=== PATIENT | male | born 1965 | race Caucasian/White ===

== ENCOUNTER 2017-06-01 09:07 | Emergency (ER) | payer BC ==
[~2017-06-01] VITALS: Ht 182.9 cm; Wt 87.6 kg
[~2017-06-01 09:07] MED LIST: CLC100 PO; OXYC-106 PO; PANT40TA PO; PYR200 PO; SACC250C PO; TAMS0.4C38 PO; TIMO0.2534 OPB
[2017-06-01 09:15] VITALS: TEMP 36.5; Ht 182.9 cm; Wt 87.6 kg
[2017-06-01] MEDS ORDERED: PRED10TA PO (09:39)
[2017-06-01] MEDS ORDERED: ZNF/4 PO (09:39)
[2017-06-01] MEDS ORDERED: ALPPOPS5 OPB (09:39)
[2017-06-01] MEDS ORDERED: DORZ1SOL5 OPB (09:39)
[2017-06-01] MEDS ORDERED: OXYC-57 PO (09:39)
[2017-06-01] MEDS ORDERED: PRT/40 PO (09:39)
[2017-06-01] MEDS ORDERED: KETOROLAC TROMETHAMINE 60 MG/2 ML VIAL IM STA (10:00)
--- NOTE | 2017-06-01 10:01 | EMERGENCY ROOM VISIT NOTE ---
History Report prepared by Elis: Pastora Medrano Under the Supervision of: Dr. Irma Clemons D.O. First contact with patient: 09:33 Chief Complaint: NECK PAIN Stated Complaint: NECK PAIN,FACIAL NUMBNESS History of Present Illness The patient is a 51 year old male who presents to the Emergency Room with complaints of worsening left sided neck pain beginning 2 weeks prior to arrival. The patient states that he saw his PCP last night and was prescribed Percocet, Prednisone and a muscle relaxer. He states that he has not taken any of the medications yet. The patient was on his way to get his outpatient X-Ray of his neck done and he began to experience left sided numbness. The patient describes the numbness as similar to a numbing injection at the dentist. He states that he is also experiencing pain in his ear down into his shoulder and left arm. The patient states that recently he has woken up with left arm pain and numbness to his left two fingers. He denies any right sided symptoms.The patient denies a history of neck pain. 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 Pt denies headache, change in vision, fevers, dizziness, chest pain, shortness of breath, back pain, nausea, vomiting, diarrhea, pain with urination, and melena. Source of History: patient Onset: 2 week [employer] IN[employer] Position: neck Note: The patient is experiencing left facial numbness, left shoulder pain, left ear pain, left arm pain. Review of Systems See HPI for pertinent positives & negatives. A total of 10 systems reviewed and were otherwise negative. Past Medical & Surgical Surgical Problems: (1) H/O lithotripsy (2) Hx of cholecystectomy Family History No pertinent family history Social History Smoking Status: Never Smoker Marital Status: Housing Status: lives with family Occupation Status: employed Current/Historical Medications Scheduled Brimonidine Tartrate (Alphagan P), 1 DROP OPB BID Dorzolamide Hcl-Timolol Maleat (Cosopt Pf), 1 DROP OPB BID Oxycodone/Acetaminophen 5MG/325MG (Percocet 5MG/325MG), 1-2 TAB PO Q4H Pantoprazole (Pantoprazole Sodium), 40 MG PO DAILY Prednisone (Prednisone), 10 MG PO DAILY Tizanidine (Tizanidine HCl), 4 MG PO UD Allergies Coded Allergies: No Known Allergies (Verified , 06/01/17) Physical Exam Vital Signs Date Time Temp Pulse Resp B/P (MAP) Pulse Ox O2 Delivery O2 Flow Rate FiO2 06/01/17 11:50 68 15 141/85 94 06/01/17 09:15 36.5 84 18 142/91 97 Physical Exam GENERAL: alert, well appearing, well nourished, no distress, non-toxic EYE EXAM: normal conjunctiva, PERRL and EOM's grossly intact OROPHARYNX: no exudate, no erythema, lips, buccal mucosa, and tongue normal and mucous membranes are moist NECK: supple, no nuchal rigidity, no adenopathy, non-tender, no step off, no reproducible neck pain with palpation. LUNGS: Clear to auscultation. Normal chest wall mechanics HEART: no murmurs, S1 normal and S2 normal ABDOMEN: abdomen soft, non-tender, normo-active bowel sounds, no masses, no rebound or guarding. BACK: Back is symmetrical on inspection and there is no deformity, no midline tenderness, no CVA tenderness, no step off. SKIN: no rashes and no bruising UPPER EXTREMITIES: upper extremities are grossly normal. Normal bicep reflexes 2 /4 bilaterally. No bony tenderness to shoulder or upper extremities. LOWER EXTREMITIES: No pitting edema. NEURO EXAM: Normal sensorium, cranial nerves II-XII grossly intact, normal speech, no gross weakness of arms, no gross weakness of legs. No drift. Finger to nose intact. Gross sensation intact. Medical Decision & Procedures ER Provider Diagnostic Interpretation: MRI result has been interpreted by the radiologist and reviewed by me. MRI OF THE CERVICAL SPINE WITHOUT IV CONTRAST CLINICAL HISTORY: Neck pain. Cervical radiculopathy. COMPARISON STUDY: No priors. TECHNIQUE: MRI of the cervical spine is performed utilizing various T1 and T2-weighted sequences in the axial and sagittal planes. IV contrast was not administered for this examination. FINDINGS: Cervical spine: Vertebral body height is maintained throughout the cervical spine. There is minimal retrolisthesis at C3-C4. Alignment is otherwise preserved. Marrow signal intensity is mildly heterogeneous. The atlantodental articulation is maintained. The spinous processes appear intact. No destructive bony lesion is identified. Intervertebral discs: Mild degenerative disc desiccation is seen throughout the cervical spine. Mild loss of height is noted at C3-C4 and C4-C5. Spinal cord: The cervical spinal cord is normal in morphology and signal intensity. C2-C3: A tiny posterior disc osteophyte complex is of no consequence. Uncovertebral arthropathy contributes to minimal left-sided neural foraminal stenosis. C3-C4: A posterior disc osteophyte complex eccentric to the left abuts the ventral cord. Uncovertebral and facet arthropathy contribute to moderate left-sided neural foraminal stenosis. C4-C5: A posterior disc osteophyte complex effaces the ventral subarachnoid space. Uncovertebral and facet arthropathy cause mild bilateral neural foraminal stenosis. C5-C6: A tiny posterior disc osteophyte complex is eccentric to left. The central canal is clear. Uncovertebral arthropathy causes minimal left-sided neural foraminal stenosis. C6-C7: A posterior disc osteophyte complex eccentric to the left abuts the ventral cord. In conjunction with uncovertebral arthropathy this causes mild to moderate left-sided neural foramen stenosis. C7-T1: Unremarkable. T1-T2: A posterior disc osteophyte complex eccentric to the left effaces the ventral subarachnoid space on the left. Soft tissues: The prevertebral and paraspinous soft tissues are normal as imaged. Brain parenchyma: Partially visualized brain parenchyma the skull base is within normal limits. IMPRESSION: 1. The cervical spinal cord is normal in morphology and signal intensity. 2. Cervical spondylosis as detailed above, greatest at C3-C4 at C6-C7. See discussion for detailed level by level analysis. 3. No destructive bony process is identified. Electronically signed by: Shahzad Arndt M.D. 06/01/2017 11:32 AM Dictated Date/Time: 06/01/2017 11:27 AM Medications Administered Medications (Trade) Dose Ordered Sig/Hammad Route Start Time Stop Time Status Last Admin Dose Admin Ketorolac Tromethamine (Toradol Inj) 60 mg NOW STAT IM 06/01/17 10:00 06/01/17 10:01 DC 06/01/17 10:05 60 MG ED Course 0952: The patient was evaluated in room C6. A complete history and physical exam was performed. 1000: Toradol Inj 60 mg IM. 1142: I reevaluated the patient. I discussed test results with the patient. 1152: Upon reevaluation, the patient is feeling better. I discussed the findings and the treatment plan with the patient. He verbalizes agreement and understanding. He was discharged home. Medical Decision The patient is a 51 year old male who presents to the ED with complaints of neck pain. Differential diagnosis include cervical radiculopathy, cervical musculoskeletal strain, trigeminal myalgia, dental infection, mastoiditis, CVA, dissection. Medication Reconciliation: I attest that I have personally reviewed the patient' s current medication list. Blood pressure screening: Patient was found to have a slightly elevated blood pressure due to circumstances. I do not believe that the patient requires hypertension monitoring. Doubt CVA or dissection, patient's symptoms more likely related to cervical radiculopathy. Patient is not yet started medications as recommended by the neck and Back Specialist. Discussed all results it bedside, use of medications , follow-up with specialist, symptoms to watch and return for, he verbalized understanding was agreeable with plan. No evidence of infectious etiology, doubt vascular etiology, no cardiac or pulmonary complaints at this time. Impression Primary Impression: Cervical radiculopathy Scribe Attestation The scribe's documentation has been prepared under my direction and personally reviewed by me in its entirety. I confirm that the note above accurately reflects all work, treatment, procedures, and medical decision making performed by me. Departure Information Dispostion Home / Self-Care Referrals RV. Mccoy MD (PCP) Forms HOME CARE DOCUMENTATION FORM, IMPORTANT VISIT INFORMATION, WORK / SCHOOL INSTRUCTIONS Patient Instructions My [facility] Additional Instructions Please follow-up with the Back Specialist you had seen already. Please take the medications they prescribed. If you develop any increasing pain, numbness or tingling, weakness, headaches, dizziness, fevers, vomiting, vision changes, or you've any other new concerns, please return the emergency room.
--- NOTE | 2017-06-01 11:33 | DIAGNOSTIC IMAGING REPORT ---
MRI OF THE CERVICAL SPINE WITHOUT IV CONTRAST CLINICAL HISTORY: Neck pain. Cervical radiculopathy. COMPARISON STUDY: No priors. TECHNIQUE: MRI of the cervical spine is performed utilizing various T1 and T2-weighted sequences in the axial and sagittal planes. IV contrast was not administered for this examination. FINDINGS: Cervical spine: Vertebral body height is maintained throughout the cervical spine. There is minimal retrolisthesis at C3-C4. Alignment is otherwise preserved. Marrow signal intensity is mildly heterogeneous. The atlantodental articulation is maintained. The spinous processes appear intact. No destructive bony lesion is identified. Intervertebral discs: Mild degenerative disc desiccation is seen throughout the cervical spine. Mild loss of height is noted at C3-C4 and C4-C5. Spinal cord: The cervical spinal cord is normal in morphology and signal intensity. C2-C3: A tiny posterior disc osteophyte complex is of no consequence. Uncovertebral arthropathy contributes to minimal left-sided neural foraminal stenosis. C3-C4: A posterior disc osteophyte complex eccentric to the left abuts the ventral cord. Uncovertebral and facet arthropathy contribute to moderate left-sided neural foraminal stenosis. C4-C5: A posterior disc osteophyte complex effaces the ventral subarachnoid space. Uncovertebral and facet arthropathy cause mild bilateral neural foraminal stenosis. C5-C6: A tiny posterior disc osteophyte complex is eccentric to left. The central canal is clear. Uncovertebral arthropathy causes minimal left-sided neural foraminal stenosis. C6-C7: A posterior disc osteophyte complex eccentric to the left abuts the ventral cord. In conjunction with uncovertebral arthropathy this causes mild to moderate left-sided neural foramen stenosis. C7-T1: Unremarkable. T1-T2: A posterior disc osteophyte complex eccentric to the left effaces the ventral subarachnoid space on the left. Soft tissues: The prevertebral and paraspinous soft tissues are normal as imaged. Brain parenchyma: Partially visualized brain parenchyma the skull base is within normal limits. IMPRESSION: 1. The cervical spinal cord is normal in morphology and signal intensity. 2. Cervical spondylosis as detailed above, greatest at C3-C4 at C6-C7. See discussion for detailed level by level analysis. 3. No destructive bony process is identified. Electronically signed by: Shahzad Arndt M.D. 06/01/2017 11:32 AM Dictated Date/Time: 06/01/2017 11:27 AM
[2017-06-01 11:50] VITALS: BP 141/85; PULSE 68; O2SAT 94
== END 2017-06-01 11:50 | disposition home or self-care (01) ==
LOC: C.EDB 09:08 → C.EDC 11:50
DX: M54.12 Radiculopathy, cervical region (principal); Z79.52 Long term (current) use of systemic steroids; Z79.899 Other long term (current) drug therapy

== ENCOUNTER 2017-06-27 07:46 | Emergency (ER) | payer BC ==
[~2017-06-27] VITALS: Ht 182.9 cm; Wt 89.6 kg
[~2017-06-27 07:46] MED LIST changes: +ALPPOPS5 OPB; -CLC100 PO; +DORZ1SOL5 OPB; -OXYC-106 PO; +OXYC-57 PO; -PANT40TA PO; +PRED10TA PO; +PRT/40 PO; -PYR200 PO; -SACC250C PO; -TAMS0.4C38 PO; -TIMO0.2534 OPB; +ZNF/4 PO
[2017-06-27 07:50] VITALS: TEMP 36.6; Ht 182.9 cm; Wt 89.6 kg
[2017-06-27] MEDS ORDERED: PROMETHAZINE HCL INJ 25 MG/ML 1 ML VIAL IV STA (08:04)
[2017-06-27] MEDS ORDERED: HYDROmorphone INJ 1 MG/ML SYR IV STA (08:04)
[2017-06-27] MEDS ORDERED: OPTIRAY 320 IV PRN (08:15)
[2017-06-27] MEDS ORDERED: DEXAMETHASONE SOD INJ 10 MG/ML VIAL IV ONE (08:15)
[2017-06-27 08:35] LABS: ISTAT HEMOGLOBIN 15.3 g/dl (14.0-18.0); ISTAT IONIZED CALCIUM 1.16 mmol/l (1.12-1.32)
--- NOTE | 2017-06-27 09:14 | DIAGNOSTIC IMAGING REPORT ---
HEAD CTA HISTORY: Severe headache. Nausea. Vomiting. TECHNIQUE: Multiaxial CT images of the head were performed both before and after the intravenous administration of contrast to evaluate the major cerebral vessels. Maximum intensity projection images were also obtained. A dose lowering technique was utilized adhering to the principles of ALARA. COMPARISON: None. FINDINGS: A partially visualized retention cysts within the right maxillary sinus. There is no mass, hematoma, midline shift, or acute infarct. Visualized intracranial internal carotid arteries, distal vertebral arteries, and basilar artery are widely patent. There is no significant stenosis, occlusion, or aneurysm seen within the bilateral ACAs, MCAs, or quality assurance manager. IMPRESSION: No acute intracranial abnormality. No significant stenosis, occlusion, or aneurysm within the [place] of [place]. Electronically signed by: Olaf Rosales M.D. 06/27/2017 9:12 AM Dictated Date/Time: 06/27/2017 9:06 AM
--- NOTE | 2017-06-27 09:38 | EMERGENCY ROOM VISIT NOTE ---
History First contact with patient: 07:53 Chief Complaint: HEADACHE Stated Complaint: HEADACHE W/VOMITING History of Present Illness The patient is a 51 year old male who presents to the Emergency Room with complaints of headache which woke him up this morning. The patient states the pain is like a pressure sensation over the frontal region. He admits to associated nausea but denies any vomiting. The patient denies any visual changes or dizziness. The patient denies any recent head trauma. The patient states he's never had a headache like this before. He denies any history of migraines. There is no family history of migraines. There is no family history of brain aneurysms but there is a family history of aortic aneurysm. The patient denies any numbness or weakness in his extremities. Review of Systems 10 system review was performed and was negative unless stated otherwise history of present illness. Past Medical/Surgical History Surgical Problems: (1) H/O lithotripsy (2) Hx of cholecystectomy Family History No pertinent family history Social History Smoking Status: Never Smoker Alcohol Use: none Drug Use: none Marital Status: Housing Status: lives with family Occupation Status: employed Current/Historical Medications Scheduled Brimonidine Tartrate (Alphagan P), 1 DROP OPB BID Dorzolamide Hcl-Timolol Maleat (Cosopt Pf), 1 DROP OPB BID Pantoprazole (Pantoprazole Sodium), 40 MG PO DAILY Physical Exam Vital Signs Date Time Temp Pulse Resp B/P (MAP) Pulse Ox O2 Delivery O2 Flow Rate FiO2 06/27/17 08:59 77 20 149/87 94 Room Air 06/27/17 07:50 36.6 75 20 162/86 99 Room Air Physical Exam GENERAL: 51-year-old white male appears uncomfortable secondary to headache. MENTAL Status: Alert and oriented 3. EYES: PERRLA. EOMs intact. EARS: Canals clear. TMs without fluid level noted. NECK: Supple, no lymphadenopathy noted. No carotid bruits noted. LUNGS: Clear auscultation without wheezes rales or rhonchi. CARDIAC: Regular rate and rhythm without murmur. Pulses is full and equal throughout. ABDOMEN: Positive bowel sounds all 4 quadrants. Soft, nontender to palpation without organomegaly or masses. NEURO:Cranial nerves two through 12 intact. Cerebellar function intact with [id number]. Fine motor intact with alternating finger motions. Medical Decision & Procedures ER Provider Diagnostic Interpretation: HEAD CTA HISTORY: Severe headache. Nausea. Vomiting. TECHNIQUE: Multiaxial CT images of the head were performed both before and after the intravenous administration of contrast to evaluate the major cerebral vessels. Maximum intensity projection images were also obtained. A dose lowering technique was utilized adhering to the principles of ALARA. COMPARISON: None. FINDINGS: A partially visualized retention cysts within the right maxillary sinus. There is no mass, hematoma, midline shift, or acute infarct. Visualized intracranial internal carotid arteries, distal vertebral arteries, and basilar artery are widely patent. There is no significant stenosis, occlusion, or aneurysm seen within the bilateral ACAs, MCAs, or net applications developer. IMPRESSION: No acute intracranial abnormality. No significant stenosis, occlusion, or aneurysm within the [place] of [place]. Electronically signed by: Olaf Rosales M.D. 06/27/2017 9:12 AM Laboratory Results Test 06/27/17 08:22 Bedside Hemoglobin 15.3 g/dl (14.0-18.0) Bedside Hematocrit 45 % (42-52) Bedside Sodium 138 mEq/L (135-144) Bedside Potassium 5.8 mEq/L (3.3-5.0) Bedside Chloride 101 mEq/L (101-112) Bedside Total CO2 29 mEq/l (24-31) Anion Gap 15.0 mmol/L (16-25) Bedside Blood Urea Nitrogen 16 mg/dl (7-18) Bedside Creatinine 1.0 mg/dl (0.6-1.3) Bedside Glucose (other) 115 mg/dl (70-99) Bedside Ionized Calcium ([place]ni) 1.16 mmol/l (1.12-1.32) Medications Administered Medications (Trade) Dose Ordered Sig/Hammad Route Start Time Stop Time Status Last Admin Dose Admin Dexamethasone Sodium Phosphate (Decadron Inj) 10 mg NOW ONCE IV 06/27/17 08:15 06/27/17 08:16 DC 06/27/17 08:15 10 MG Promethazine HCl (Phenergan Inj) 25 mg NOW STAT IV 06/27/17 08:04 06/27/17 08:09 DC 06/27/17 08:04 25 MG Hydromorphone HCl (Dilaudid Inj) 1 mg NOW STAT IV 06/27/17 08:04 06/27/17 08:09 DC 06/27/17 08:04 1 MG ED Course The patient was evaluated. The patient's EMR medication list were reviewed. IV access was obtained. I-STAT chem profile was ordered. The patient was given Dilaudid 1 mg IV, Decadron 10 mg IV and Phenergan 25 mg IV. I stats were normal. Creatinine was 1.0. CT of the head and CTA of the head was ordered and interpreted by the radiologist as above without any acute findings. The patient was informed of the findings. The patient was reevaluated on several occasions while in the emergency room. His headache at time of discharge was almost completely resolved. I discussed with the patient if he has recurrent similar headaches that he should follow with his family doctor for the possibility of migraine headaches. He was discharged home in stable condition.. Medical Decision Differential includes: Acute intracranial bleed, trauma, meningitis, encephalitis, increased intracranial pressure, mass or mass effect, facial or dental infection, temporal arteritis, CVA, TIA, acute hypertensive emergency, sinusitis, carbon monoxide exposure. Due to the headache waking the patient up in the morning and being the worst headache of her life a CT of the head and injury or were performed. [place] Drug Monitoring Program Search Results: patient reviewed within database Medication Reconcilliation Current Medication List: was personally reviewed by me Blood Pressure Screening Patient's blood pressure: Elevated blood pressure Blood pressure disposition: Elevated BP felt to be situational Impression Primary Impression: Headache Departure Information Dispostion Home / Self-Care Condition GOOD Referrals RV. Mccoy MD (PCP) Forms HOME CARE DOCUMENTATION FORM, IMPORTANT VISIT INFORMATION Patient Instructions My [facility] Additional Instructions Do not drive for 8 hours. Go home and rest. If you have recurrent headaches, recommend following up with your family doctor for possibility of migraine headaches. Problem Qualifiers Primary Impression: Headache Headache type: unspecified Headache chronicity pattern: acute headache Intractability: not intractable Qualified Codes: R51 - Headache
[2017-06-27 09:41] VITALS: BP 136/78; PULSE 66; O2SAT 94
== END 2017-06-27 09:49 | disposition home or self-care (01) ==
LOC: C.EDB 07:47
DX: R51 Headache (principal)